=== PATIENT | female | born 1980 | race Caucasian/White ===

== ENCOUNTER 2016-10-25 22:54 | Emergency (ER) | payer MEDICAID ==
[~2016-10-25] VITALS: Ht 152.4 cm; Wt 49.0 kg
[~2016-10-25 22:54] MED LIST: PREN1TAB49 PO
[2016-10-25 22:56] VITALS: Ht 152.4 cm; Wt 49.0 kg
--- NOTE | 2016-10-26 00:16 | ERD ---
ER Documentation Chief Complaint Date/Time DATE: 10/26/16 TIME: 00:14 Chief Complaint back pain when breathing,cough and ruq abd pain HPI 35-year-old female presents to emergency department for multiple complaints. Patient's complaining of sore throat bilateral ear pain really notice a congestion and cough up upper back pain with coughing for the last 2 days. Patient has been having dry cough, does not cough up any phlegm or blood. Patient describes upper back pain as sharp pain, 6/10 scale, not better or worse with anything. Patient denies taking any medications to help with symptoms. Patient's son is sick with viral infection. Patient is also minor right upper quadrant abdominal pain, sharp pain, 6/10 scale, not better or worse with anything. Patient denies any diarrhea or constipation. Patient denies hematuria or dysuria. ROS All systems reviewed and are negative except as per history of present illness. Medications Home Meds Reported Medications Vits W-Ca,Fe,Fa(<1MG) () 1 Tab Tablet, 1 TAB PO DAILY 04/14/12 Allergies Allergies: Coded Allergies: No Known Allergies (Verified Allergy, Unknown, 04/14/12) PMhx/Soc Medical and Surgical Hx: pt denies Medical Hx, pt denies Surgical Hx FmHx Family History: No coronary disease, No diabetes, No other Physical Exam Vitals Vital Signs Date Time Temp Pulse Resp B/P Pulse Ox O2 Delivery O2 Flow Rate FiO2 10/25/16 22:56 98.3 76 20 110/70 98 Physical Exam GENERAL: The patient is well developed and appropriate for usual state of health, in no apparent distress. CHEST: Clear to auscultation bilaterally. There are no rales, wheezes or rhonchi. HEART: Regular rate and rhythm. No murmurs, clicks, rubs or gallops. No S3 or S4. ABDOMEN: Soft, nontender and nondistended. Good bowel sounds. No rebound or guarding. No gross peritonitis. No gross organomegaly or masses. No Meraz sign or McBurney point tenderness. BACK: No midline or flank tenderness. EXTREMITIES: Equal pulses bilaterally. There is no peripheral clubbing, cyanosis or edema. No focal swelling or erythema. Full range of motion. Grossly neurovascularly intact. NEURO: Alert and oriented. Cranial nerves 2-12 intact. Motor strength in all 4 extremities with 5/5 strength. Sensation grossly intact. Normal speech and gait. SKIN: There is no apparent rash or petechia. The skin is warm and dry. HEMATOLOGIC AND LYMPHATIC: There is no evidence of excessive bruising or lymphedema. No gross cervical, axillary, or inguinal lymphadenopathy. Result Diagram: 10/26/162910/26/1629 Results 24 hrs Laboratory Tests Test 10/26/16 00:30 White Blood Count 7.110^3/ul Red Blood Count 4.1910^6/ul Hemoglobin 12.5g/dl Hematocrit 36.5% Mean Corpuscular Volume 87.1fl Mean Corpuscular Hemoglobin 29.8pg Mean Corpuscular Hemoglobin Concent 34.2g/dl Red Cell Distribution Width 12.2% Platelet Count 22034^3/UL Mean Platelet Volume 9.8fl Neutrophils % 58.8% Lymphocytes % 28.1% Monocytes % 10.9% Eosinophils % 1.8% Basophils % 0.1% Nucleated Red Blood Cells % 0.0/100WBC Neutrophils # 4.210^3/ul Lymphocytes # 2.010^3/ul Monocytes # 0.810^3/ul Eosinophils # 0.110^3/ul Basophils # 0.010^3/ul Nucleated Red Blood Cells # 0.010^3/ul Urine Color LT. YELLOW Urine Clarity SL HAZY Urine pH 6.5 Urine Specific [place] 1.020 Urine Ketones NEGATIVE Urine Nitrite NEGATIVE Urine Bilirubin NEGATIVE Urine Urobilinogen 0.2 E.U./dL Urine Leukocyte Esterase TRACE Urine Microscopic RBC 10-25/HPF Urine Microscopic WBC 2-5/HPF Urine Squamous Epithelial Cells MODERATE Urine Bacteria MODERATE Urine Yeast OCCASIONAL Urine Hemoglobin 3+ Urine Glucose NEGATIVE% Urine Total Protein TRACE Sodium Level 137mmol/L Potassium Level 3.4mmol/L Chloride Level 107mmol/L Carbon Dioxide Level 24mmol/L Anion Gap 9 Blood Urea Nitrogen 13mg/dl Creatinine 0.64mg/dl Glucose Level 93mg/dl Calcium Level 8.9mg/dl Total Bilirubin 0.4mg/dl Direct Bilirubin 0.00mg/dl Indirect Bilirubin 0.4mg/dl Aspartate Amino Transf (AST/SGOT) 24IU/L Alanine Aminotransferase (ALT/SGPT) 30IU/L Alkaline Phosphatase 76IU/L Total Protein 7.2g/dl Albumin 4.0g/dl Globulin 3.20g/dl Albumin/Globulin Ratio 1.25 Lipase 130U/L PROCEDURE: US Abdomen (right upper quadrant). CLINICAL INDICATION: Abdominal pain. TECHNIQUE: Multiple real-time longitudinal and transverse images of the right upper quadrant of the abdomen were acquired utilizing a curved array transducer. Images were reviewed on a high-resolution PACS workstation. COMPARISON: None FINDINGS: The liver is normal in size and echogenicity without focal mass or intrahepatic biliary dilatation. The gallbladder is normal. There is no pericholecystic fluid or gallbladder wall thickening or gallstones. The sonographic Meraz sign is negative. No intra or extrahepatic biliary dilatation is seen. The common bile duct measures 3.2 mm in maximal dimension. The visualized portions of the pancreas are unremarkable with obscuration of the tail of the pancreas. No free fluid is identified. The right kidney measures 10.7 cm in length. There is normal echogenicity within the right kidney. There is no perinephric fluid collection. No hydronephrosis, mass, or calculus is seen. IMPRESSION: 1. Unremarkable right upper quadrant ultrasound. RPTAT: HH .Juan Meeks MD, MD Date Time Electronically viewed and signed by .Juan Meeks MD, MD on 10/26/2016 00: 59 .N/ PROCEDURE: XR Chest. CLINICAL INDICATION: Pain. TECHNIQUE: Single frontal chest x-ray. COMPARISON: None available. FINDINGS: The cardiomediastinal silhouette is unremarkable. No pneumothorax, pleural effusion or consolidation is seen. No acute osseous abnormality is noted. IMPRESSION: 1. No acute cardiopulmonary abnormality. RPTAT: HFN .Juan Meeks MD, MD Date Time Electronically viewed and signed by .Juan Meeks MD, MD on 10/26/2016 00: 57 .N/ CC: KAMALA BARAJAS [employer] Procedures/MDM Medical Decision Making: Patient's right upper quadrant abdominal pain nonspecific at this time, possibly gastritis related. Patient also has a urinary tract infection and will be treated. No symptoms of pyelonephritis. There is low suspicion for abdominal emergencies at this time. Patients abdominal exam is normal at this time. Patients radiology exam does not show any abdominal emergencies at this time. There is low suspicion for appendicitis , cholecystitis, abdominal aortic aneurysms or peritonitis at this time. There is low suspicion for sepsis. Patient appears well and is hemodynamically stable. Patient symptoms are most likely consistent with upper respiratory tract infection, which viral in origin. There is low suspicion for Pneumonia at this time since patients lungs sounds are clear, patient O2 saturation is normal and patient doesnt show any respiratory distress. Patients chest xray doesnt show infiltrates or any other cardiopulmonary emergencies at this time. There is low suspicion for other cardiopulmonary emergencies at this time such as CHF, Pulmonary Embolism, Pneumothorax, Aortic Aneurysm or any other cardiopulmonary emergencies at this time. There is low suspicion for sepsis. Patient appears well and is hemodynamically stable. Fever is controlled with medicines. Disposition: Home. Condition: Stable Prescription Zyrtec, guaifenesin DM ibuprofen Keflex tramadol, omeprazole, [place] Instructions: Patient is advised to take medications as prescribed. Patient is advised to rest, do brat diet for next 1-2 days and progress as tolerated. Patient advised to increase fluid intake, do humidifier at home and if possible , do salt water gargles. Patient is advised that if symptoms are worse, severe abdominal pain, uncontrolled vomiting, high fever, severe flank pain, worst signs and symptoms, to return to the emergency department immediately. Otherwise, patient can follow up with primary care doctor in 5-7 days. Departure Diagnosis: Primary Impression: Abdominal pain Abdominal location: right upper quadrant Qualified Code: R10.11 - Right upper quadrant abdominal pain Additional Impressions: UTI (urinary tract infection) Urinary tract infection type: acute cystitis Hematuria presence: without hematuria Qualified Code: N30.00 - Acute cystitis without hematuria URI (upper respiratory infection) URI type: unspecified viral URI Qualified Code: J06.9 - Viral upper respiratory tract infection Condition: Stable Patient Instructions: Abdominal Pain, Understanding Urinary Tract Infections ( UTIs), Uri, Viral, No Abx (Adult) Additional Instructions: Patient is advised to take medications as prescribed. Patient is advised to rest, do brat diet for next 1-2 days and progress as tolerated. Patient advised to increase fluid intake, do humidifier at home and if possible, do salt water gargles. Patient is advised that if symptoms are worse, severe abdominal pain, uncontrolled vomiting, high fever, severe flank pain, worst signs and symptoms, to return to the emergency department immediately. Otherwise, patient can follow up with primary care doctor in 5-7 days. KAMALA BARAJAS NP October 26, 2016 00:16
[2016-10-26 00:47] LABS: ADD SCAN DIFF NO
[2016-10-26 00:54] LABS: BASOPHILS % 0.1 % (0.0-2.0); EOSINOPHILS # 0.1 10^3/ul (0.0-0.5); EOSINOPHILS % 1.8 % (0.0-7.0); HEMATOCRIT 36.5 % (37.0-47.0); HEMOGLOBIN 12.5 g/dl (12.0-16.0); LYMPHOCYTES % 28.1 % (15.0-51.0); MEAN CORPUSCULAR HEMOGLOBIN 29.8 pg (29.0-33.0); MEAN CORPUSCULAR HGB CONC 34.2 g/dl (32.0-37.0); MEAN CORPUSCULAR VOLUME 87.1 fl (82.0-101.0); MEAN PLATELET VOLUME 9.8 fl (7.4-10.4); MONOCYTE # 0.8 10^3/ul (0.3-0.9); MONOCYTES % 10.9 % (0.0-11.0); NEUTROPHIL # 4.2 10^3/ul (1.6-7.5); NEUTROPHILS % 58.8 % (39.0-77.0); PLATELET COUNT 231 10^3/UL (140-415); RED BLOOD COUNT 4.19 10^6/ul (4.20-5.40); RED CELL DISTRIBUTION WIDTH 12.2 % (11.5-14.5); WHITE BLOOD COUNT 7.1 10^3/ul (4.8-10.8)
--- NOTE | 2016-10-26 00:57 | RADRPT ---
PROCEDURE: XR Chest. CLINICAL INDICATION: Pain. TECHNIQUE: Single frontal chest x-ray. COMPARISON: None available. FINDINGS: The cardiomediastinal silhouette is unremarkable. No pneumothorax, pleural effusion or consolidation is seen. No acute osseous abnormality is noted. IMPRESSION: 1. No acute cardiopulmonary abnormality. RPTAT: HFN .Juan Meeks MD, MD Date Time Electronically viewed and signed by .Juan Meeks MD, on 10/26/2016 00:57 .N/
--- NOTE | 2016-10-26 01:00 | RADRPT ---
PROCEDURE: US Abdomen (right upper quadrant). CLINICAL INDICATION: Abdominal pain. TECHNIQUE: Multiple real-time longitudinal and transverse images of the right upper quadrant of th e abdomen were acquired utilizing a curved array transducer. Images were reviewed on a high-resoluti on PACS workstation. COMPARISON: None FINDINGS: The liver is normal in size and echogenicity without focal mass or intrahepatic biliary dilatation. The gallbladder is normal. There is no pericholecystic fluid or gallbladder wall thickening or gal lstones. The sonographic Meraz sign is negative. No intra or extrahepatic biliary dilatation is see n. The common bile duct measures 3.2 mm in maximal dimension. The visualized portions of the pancr eas are unremarkable with obscuration of the tail of the pancreas. No free fluid is identified. The right kidney measures 10.7 cm in length. There is normal echogenicity within the right kidney. There is no perinephric fluid collection. No hydronephrosis, mass, or calculus is seen. IMPRESSION: 1. Unremarkable right upper quadrant ultrasound. RPTAT: HH .Juan Meeks MD, Date Time Electronically viewed and signed by .Juan Meeks MD, MD on 10/26/2016 00:59 .N/
[2016-10-26 01:02] LABS: ALBUMIN/GLOBULIN RATIO 1.25; BILIRUBIN,INDIRECT 0.4 mg/dl (0-1.1); BILIRUBIN,TOTAL 0.4 mg/dl (0.2-1.3); CALCIUM 8.9 mg/dl (8.4-10.2); CREATININE 0.64 mg/dl (0.44-1.00); POTASSIUM 3.4 mmol/L (3.5-5.1); TOTAL PROTEIN 7.2 g/dl (6.1-8.1)
[2016-10-26 01:49] LABS: ADD UMIC YES; URINE BILIRUBIN (Dip) NEGATIVE (NEGATIVE); URINE BLOOD (Dip) 3+ (NEGATIVE); URINE COLOR LT. YELLOW (YELLOW); URINE GLUCOSE (Dip) NEGATIVE (NEGATIVE); URINE KETONES (Dip) NEGATIVE (NEGATIVE); URINE LEUKOCYTE ESTERASE (Dip) TRACE (NEGATIVE); URINE NITRITE (Dip) NEGATIVE (NEGATIVE); URINE TOTAL PROTEIN (Dip) TRACE (NEGATIVE); URINE UROBILINOGEN (Dip) 0.2 E.U./dL (0.1-1.0)
[2016-10-26 02:00] LABS: SQUAMOUS EPITHELIAL CELL,UR MODERATE
[2016-10-26 02:02] LABS: BACTERIA,URINE MODERATE
[2016-10-26] MEDS ORDERED: GUAI120S26 PO (02:17)
[2016-10-26] MEDS ORDERED: CEPH-443 PO (02:17)
[2016-10-26] MEDS ORDERED: OMEP20CA16 PO (02:17)
[2016-10-26] MEDS ORDERED: MAG-19 PO (02:17)
[2016-10-26] MEDS ORDERED: CETI10CA PO (02:17)
[2016-10-26] MEDS ORDERED: TRAM50TA2 PO (02:17)
[2016-10-26 02:41] VITALS: BP 111/71; PULSE 71; RESP 16
== END 2016-10-26 02:44 | disposition home or self-care (01) ==
LOC: FTE 22:54
DX: R10.11 Right upper quadrant pain (principal); N30.00 Acute cystitis without hematuria; J06.9 Acute upper respiratory infection, unspecified
CPT/HCPCS: 36415; 71010; 76705; 80053; 81001; 83690; 85025; Z7502; 81003

== ENCOUNTER 2018-05-06 17:47 | Inpatient (IN) | END 2018-05-08 14:55 | disposition home or self-care (01) | DRG 872 ==